=== PATIENT | male | born 1940 | race Caucasian/White ===

== ENCOUNTER 2022-02-18 11:53 | Emergency (ER) | payer OTHER, MEDICARE ==
[~2022-02-18] VITALS: Ht 182.9 cm; Wt 93.1 kg
[2022-02-18] MEDS ORDERED: PRADAXA150 MG PO (12:48)
[2022-02-18] MEDS ORDERED: HYDROCODON-ACE1 EA10 PO (19:08)
== END 2022-02-18 19:35 | disposition home or self-care (01) ==
LOC: ED 11:53
PROC: 2W3MX1Z Immobilization of Left Lower Extremity using Splint (ICD-10-PCS; principal; 2022-02-18)
DX: S82.855A Nondisplaced trimalleolar fracture of left lower leg, initial encounter for closed fracture (principal); G62.9 Polyneuropathy, unspecified; Z86.711 Personal history of pulmonary embolism; Z79.899 Other long term (current) drug therapy; Z20.822 Contact with and (suspected) exposure to COVID-19; W01.0XXA Fall on same level from slipping, tripping and stumbling without subsequent striking against object, initial encounter
CPT/HCPCS: 29515; 36415; 73610; 73700; 80048; 85025; 99284-25; A9270; C9803; U0003

== ENCOUNTER 2022-04-10 17:29 | Emergency (ER) | payer MEDICARE ==
[~2022-04-10] VITALS: Ht 182.9 cm; Wt 93.1 kg
[~2022-04-10 17:29] MED LIST: HYDROCODON-ACE1 EA10 PO; PRADAXA150 MG PO
[2022-04-10] MEDS ORDERED: DOXYCYCLINE HY100 MG PO (20:00)
== END 2022-04-10 20:15 | disposition home or self-care (01) ==
LOC: ED 17:29
DX: L03.116 Cellulitis of left lower limb (principal)
CPT/HCPCS: 36415; 80053; 85025; 93971; 99284-25; A9270

== ENCOUNTER 2022-04-15 16:06 | Inpatient (IN) | payer MEDICARE ==
[~2022-04-15] VITALS: Ht 182.9 cm; Wt 91.7 kg
[~2022-04-15 16:06] MED LIST changes: +DOXYCYCLINE HY100 MG PO
--- OUTSIDE RECORDS SUMMARY | 2022-04-15 16:08 | XMS ---
PreManage Notification: JULIAN JACQUES Security Panel Sewer Events No recent Security Events currently on file CRITERIA MET - [facility] - 2 Visits in 30 Days CARE PROVIDERS LISSA DIGGS Internal Medicine Current [facility]: [phone] [facility]ONE: Unknown Samson has no Care Guidelines for this patient. Jori VISIT COUNT (12 MO.) [address] [place] [address] TOTAL 3 NOTE: Visits indicate total known visits. ED/UCC VISIT TRACKING (12 MO.) 04/15/2022 16:06 [facility] TYPE: Emergency COMPLAINT: - SKIN PROBLEM 04/10/2022 17:31 [facility] TYPE: Emergency COMPLAINT: - LEG IS SWELLING AND RED DIAGNOSES: - Cellulitis of left lower limb - Pain in left lower leg 02/18/2022 11:55 [facility] TYPE: Emergency COMPLAINT: - EXTREMITY PAIN/INJURY DIAGNOSES: - Fall on same level from slipping, tripping and stumbling without subsequent striking against object, initial encounter - Other oysterman (current) drug therapy - Nondisplaced trimalleolar fracture of left lower leg, initial encounter for closed fracture - Contact with and (suspected) exposure to COVID-19 - Pain in left ankle and joints of left foot - Personal history of pulmonary embolism - Polyneuropathy, unspecified INPATIENT VISIT TRACKING (12 MO.) No inpatient visits to display in this time frame [email or web address]
[2022-04-15] MEDS ORDERED: LEVOFLOXACIN750 MG PO (16:19)
[2022-04-15] MEDS ORDERED: NALOXONE HCL4 MG NAS (16:19)
[2022-04-15] MEDS ORDERED: PANTOPRAZOLE SO40 MG PO (16:20)
[2022-04-16] MEDS ORDERED: LEVOFLOXACIN750 MG PO (08:10)
--- NOTE | 2022-04-16 09:05 | NUR ---
PATIENT ADMITTED TO MED SURG. PATIENT WAS ABLE TO SCOOT OVER TO BED UNASSISTED. PATIENT DENIES PAIN. BOTH LEGS ARE ELEVATED ON 2 PILLOWS. RIGHT ANKLE HAS AREA OF CELLULITIS AND IS MOSTLY COVERED WITH A BANDAIDE. LEFT LEG IS RED FROM ANKLE UP TOWARDS GROIN, IS MARKED AND HAS 2+ EDEMA EVEN AT KNEE. PATIENT IS AFEBRILE. BREAKFAST IS IN ROOM AND PATIENT IS RESTING IN BED WHILE HE EATS BREAKFAST. PATIENT ORIENTED TO ROOM AND CALL LIGHT.
[2022-04-16] MEDS ORDERED: NIACIN ER500 MG PO (13:39)
--- NOTE | 2022-04-16 13:40 | NUR ---
MED REC COMPLETE
--- NOTE | 2022-04-16 19:00 | NUR ---
REPORT RECEIVED FROM SCOTT STEVENSON. PT LAYING IN BED WITH EYES OPEN AND RESPONDS WHEN ADDRESSED. PT REQUESTING TO HAVE MORNING PROTONIX ADMINISTRATION TIME CHANGED TO 1700. THIS RN WILL TALK WITH PHARMACY ABOUT HAVING THE TIME CHANGED. PT REPORTS NO OTHER NEEDS AT THIS TIME. CALL LIGHT IN REACH.
--- NOTE | 2022-04-16 20:41 | NUR ---
IN TO ADMINISTER MEDICATIONS, SEE MAR. PT TAKES PO MEDICATIONS WITH NO ISSUES. IV FLUSHES WNL. IV ABX STARTED, SEE MAR. ASSESSMENT COMPLETE. LUNG SOUNDS CLEAR. BOWEL TONES ACTIVE. EDEMA NOTED TO BLE. LLE REDNESS HAS NOT MOVED BEYOND PREVIOUS MARKINGS. PT DENIES ANY PAIN, PT STATES "SLIGHT DISCOMFORT FROM THE LEG." PT DENEIS ANY PRN PAIN MEDICAITON WHEN OFFERED. PT REPORTS NO OTHER NEEDS AT THIS TIME. CALL LIGHT IN REACH. VITALS COMPLETE. I&Os COMPLETE.
--- NOTE | 2022-04-16 22:34 | NUR ---
IN IV ABX COMPLETE. IV FLUSHED AND NEW IV ABX STARTED, SEE MAR. IV INFUSING WNL. PT REQUESTING WATER. WILL PROVIDE WATER. PT REPORTS NO OTHER NEEDS. CALL LIGHT IN REACH.
--- NOTE | 2022-04-16 22:38 | NUR ---
IN TO ASHWINI CALL LIGHT. IV ABX COMPLETE. IV FLUSHED WNL. WATER PROVIDED. PT REPORTS NO OTHER NEEDS AT THIS TIME. CALL LIGHT IN REACH.
--- NOTE | 2022-04-17 01:23 | NUR ---
IN TO ROUND ON PT. PT AWAKE IN BED AND STATES "I DO NOT FEEL GOOD." ASKED PT TO ELABORATE. PT STATES "MY STOMACH IS UPSET." EDUCATION ON ABX PROVIDED. OFFERED PT CRACKERS. PT ACCEPTS, CRACKERS PROVIDED. PT REPORTS NO OTHER NEEDS AT THIS TIME. CALL LIGHT IN REACH. URINAL EMPTIED.
--- NOTE | 2022-04-17 02:53 | NUR ---
IN TO ROUND ON PT. PT AWAKENS WHEN ADDRESSED. ASKED PT IF STOMACH IS FEELING BETTER PT STATES "IT IS FEELING BETTER, THE CRACKERS TASTED GOOD." ASSESSMENT COMPLETE. LUNG SOUNDS CLEAR. REDNESS ON LEFT LEG REMAINS WITHIN THE OUTLINE THAT WAS PLACED PREVIOUSLY. PT REPORTS RESTLESS LEGS AT TIMES. PT DENIES WANTING ANY PAIN MEDICATION AT THIS TIME. PT REQUESTING WATER, WATER PROVIDED. I&Os AND VITALS COMPLETE. NO OTHER NEEDS AT THIS TIME. CALL LIGHT IN REACH.
--- NOTE | 2022-04-17 05:30 | NUR ---
IN TO ADMINISTER MEDICATION, SEE MAR. IV FLUSHED WNL. IV ABX STARTED, SEE MAR. VITALS AND I&Os COMPLETE. IV FINISHED INFUSING WNL AND FLUSHED WNL. PT SL. PT EDGARDO ANY NEEDS AT THIS TIME. CALL LIGHT IN REACH.
--- NOTE | 2022-04-17 07:52 | NUR ---
PT RESTING EYES CLOSED AT TIME OF SHIFT REPORT, LEFT UNDITURBED. CALL LIGHT IN REACH FRESH H20 TO BEDSIDE.
--- NOTE | 2022-04-17 11:37 | NUR ---
PT TOLERATES 100% OF MORNING MEAL, CONTINUES RESTING IN BED NO C/O DISCOMFORTS OR PAIN. REQUESTS SHOWER THIS SHIFT. PERSONAL CARE ITEMS PROVIDED, SHOWER IS READY, PT IS ON THE PHONE. ABX INFUSION COMPLETE
--- NOTE | 2022-04-17 12:43 | NUR ---
PT UP TO THE SHOWER THEN TO THE CHAIR FOR NOON MEAL. AGREES REDNESS AND SWELLING OF LEG ARE MUCH IMPROVED SINCE ADMISSION. CALL LIGHT AND NEEDED ITEMS IN REACH, PT DENIES FURTHER NEED
--- NOTE | 2022-04-17 14:42 | NUR ---
PT COMPLETES ORAL AND PERSONAL CARES AFTER NOON MEAL THEN RETURNS TO REST IN BED LLE ELVATED. DENIES PAIN OR DISCOMFORT STATES "IT JUST HURTS WHEN I WALK" WATCHING TV, NEEDED ITEMS IN REACH, URINAL EMPTIED.
--- NOTE | 2022-04-17 19:41 | NUR ---
PATIENT AWAKE IN BED WATCHING TV, A&OX4, NO DISTRESS. PATIENT REPORTS HIS LEG PAIN IS TOLERABLE AT THIS TIME. LEGS ELEVATED ON PILLOWS. PATIENT DENIES NEEDS, CALL LIGHT WITHIN REACH.
--- NOTE | 2022-04-17 20:50 | NUR ---
ADMIN TYLENOL 500MG PO FOR REPORTS OF 5/10 BILAT LEG PAIN.
--- NOTE | 2022-04-17 22:23 | NUR ---
PT CALLS TO REPORT IV ALARM, RESOLVED. URINAL EMPTIED. WARM BLANKET PROVIDED. NO OTHER NEEDS. CALL LIGHT IN REACH.
--- NOTE | 2022-04-18 01:00 | NUR ---
SHIFT REPORT RECEIVED FROM GRAHAM CHAVZE. PT RESTING IN BED, EYES CLOSED. RR EVEN, UNLABORED. CALL LIGHT IN REACH.
--- NOTE | 2022-04-18 03:00 | NUR ---
PT RESTING IN BED, EYES CLOSED. RR EVEN, UNLABORED. CALL LIGHT IN REACH.
--- NOTE | 2022-04-18 05:52 | NUR ---
ASSESSMENT, VS, I&O COMPLETED. SCHEDULED MED PROVIDED. LLE ACHE 4/10, PRN PAIN MED PROVIDED. LLE HAS 1+ EDEMA AND REDNESS, ELEVATED. ICE WATER PROVIDED. NO OTHER NEEDS AT THIS TIME. CALL LIGHT IN REACH.
--- NOTE | 2022-04-18 07:40 | NUR ---
PT RESTING EYES CLOSED AT TIME OF SHIFT REPORT. NEEDED ITEMS IN REACH.
--- NOTE | 2022-04-18 09:12 | NUR ---
PT UP TO BATHROOM W/STBY ASSIST FWW, STEADY ON FEET, NO COMPLAINTS OF PAIN OR DISCOMFORT. LINEN CHANGED, PT ABLE TO DO ORAL CARE IDEPENDENTLY. BACK TO CHAIR. VITALS/I&O'S TAKEN/DOCUMENTED. CALL LIGHT IN REACH.
--- NOTE | 2022-04-18 09:48 | NUR ---
PT UP TO THE CHAIR FOR MORNING MEAL RETURNS TO RESTING IN BED LLE ELEVATED. DENIES PAIN OR DISCOMFORTS.
--- NOTE | 2022-04-18 11:41 | NUR ---
PT STATES HE NEEDS SOME EXCERSIZE IS UP AMBULATING THE HALLS WITH FWW.
--- NOTE | 2022-04-18 14:00 | NUR ---
Spoke with pt and he has been walking in the [place] with a walker. He has multiple DME and home and denies any needs. Pt plans to dc when cleared medically to his home. He lives with a housemate and she works at [employer] and brings food home. Pt drives. He denies needs.
--- NOTE | 2022-04-18 14:28 | NUR ---
PT UP INDEPENDANTLY IN THE ROOM, RESTING IN BED NOW LLE ELEVATED. PT REPORTS INCREASED DISCOMFORT FROM WALKING TYLENOL PROVIDED. PT ANTICIPATES DC TOMORROW DENIES CONCERNS OR QUESTIONS
--- NOTE | 2022-04-18 16:48 | NUR ---
PT HAS MADE SEVERAL LAPS THIS SHIFT USING FWW IN THE BURT. RESTING NOW IN BED WAITING FOR EVENING MEAL. DENIES NEEDS OF PAIN MED OR OTHER. FRESH H20 TO BEDSIDE
--- NOTE | 2022-04-18 18:55 | NUR ---
BEDSIDE HANDOFF REPORT RECEIVED FROM PARTS IDENTIFIER RN. PT RESTING IN BED. PT DENIES NEEDS AT THIS TIME.
--- NOTE | 2022-04-18 20:37 | NUR ---
PT. AMBULATING SEVERAL LAPS INDEPENDENTLY WITH FWW. ADMIN EVENING MEDS. C/O L. KNEE SORENESS. ADMIN TYLENOL. IV SITE LEAKING AND PAINFUL WITH FLUSH. NEW IV START ATTEMPTED TWICE AND UNSUCCESSFUL. BENEFITS COORDINATOR WILL ATTEMPT.
--- NOTE | 2022-04-18 21:15 | NUR ---
PT RESTIN IN BED. MENTAL HEALTH COUNSELOR BAILEY ATTEMPTING NEW IV INSERTION. PT STATES PAIN IS TOLERABLE, DENIES NEED FOR TYLENOL AT THIS TIME. PT ON ROOM AIR, LUNG SOUNDS CLEAR. BOWEL TONES ACTIVE, DENIES NAUSEA. PT WITH REDNESS TO LEFT LOWER LEG, LEG WARM TO THE TOUCH 2+ EDEMA. PT WITH HX NEUROPATHY IN BLE, CMS OTHERWISE INTACT. NEW IV STARTED TO LEFT WRIST, VANCO INFUSING. PT DENIES OTHER NEEDS AT THIS TIME.
--- NOTE | 2022-04-19 02:10 | NUR ---
PT REQUESTING TYLENOL, RATING PAIN 7/10, GIVEN 500MG PO TYLENOL. PT DENIES OTHER NEEDS AT THIS TIME.
--- NOTE | 2022-04-19 07:50 | NUR ---
REPORT RECEIVED. PT LYING IN BED. INDEPENDENT IN ROOM. SALINE LOCKED. ASSESSED LEG WITH DEBORA CHAVEZ. PT DENIES PAIN. CALL LIGHT IN REACH.
--- NOTE | 2022-04-19 09:10 | NUR ---
ASSESSEMNT COMPLETED. ABX STARTED. DR JANE AT BEDSIDE. PLAN FOR DISCHARGE AFTER IV ABX DISCUSSED. PT ATE BREAKFAST THEN IS BACK IN BED. REDNESS AND HEAT TO LLE IMPROVING FOR OUTLINE. 2+ EDEMA STILL PRESENT. PT KEEPING LEG ELEVATED ON PILLOW. DENEIS PAIN.
[2022-04-19] MEDS ORDERED: CEFDINIR300 MG PO (10:31)
[2022-04-19] MEDS ORDERED: DOXYCYCLINE HY100 M3 PO (10:32)
--- NOTE | 2022-04-19 12:00 | NUR ---
DISCHARGE INSTRUCTIONS COMPLETED. PHARMACY IN TO DISCUSS MEDICATIONS. IV DC'D AND WNL. VITALS TAKEN AND STABLE. ALL QUESTIONS ANSWERED. WHEEL OUT TO OWN CAR.
== END 2022-04-19 11:55 | disposition home or self-care (01) | DRG 603 ==
LOC: ED 16:06 → MS 04-16 07:55
PROVIDERS: ADMIT Internal Medicine; ATTEND Family Medicine
DX: L03.116 Cellulitis of left lower limb (principal); Z20.822 Contact with and (suspected) exposure to COVID-19; Z66 Do not resuscitate; S82.832A Other fracture of upper and lower end of left fibula, initial encounter for closed fracture; K21.9 Gastro-esophageal reflux disease without esophagitis; A46 Erysipelas; G62.9 Polyneuropathy, unspecified; Z86.711 Personal history of pulmonary embolism; Z79.890 Hormone replacement therapy; Z98.890 Other specified postprocedural states; Z79.899 Other long term (current) drug therapy; W18.39XA Other fall on same level, initial encounter
CPT/HCPCS: 36415; 80048; 80202; 85025; 85651; 86140; 87502; 96365; 96366; 99284-25; A9270; J0690; J3370; J7060; U0003